=== PATIENT | male | born 1950 | race Two or more races ===

== ENCOUNTER 2017-08-24 07:01 | Inpatient (IN) | payer MEDICARE ==
[~2017-08-24] VITALS: Ht 170.2 cm; Wt 83.9 kg
--- NOTE | 2017-08-24 07:30 | NUR ---
GPS/RN PATIENT ADMITTED ON A 5150 HOLD FOR DTS UNDER THE CARE OF DR VIGIL AND CHERI HEBERT. PER HOLD PATIENT STATED THAT HE WAS HAVING SUICIDAL THOUGHTS AND WANTED TO RUN INTO TRAFFIC. BOTH ASHLEY AWARE OF NEW ADMISSION AND CHERI HEBERT AWARE OF NEED TO RECONCILE MEDICATION IN SYSTEM. PATIENT REFUSED TO SIGN ADMISSION PAPERWORK, COSIGNED BY 2 RN, BELONGINGS COLLECTED AND VALUABLES SENT TO [facility] IN [place] [address]. UPON FACE TO FACE ASSESSMENT, PATIENT IS ALERT X2- 3, STABLE CONDITION, DISHEVELED, DISORGANIZED, DISTRAUGHT ANXIOUS AND STATES THAT HE IS VERY DEPRESSED BUT DENIES SI AT THIS TIME. WILL CONTINUE TO MONITOR Q 15 MIN FOR SAFETY AND BEHAVIOR.
[2017-08-24] MEDS ORDERED: MAGNESIUM HYDROXIDE 30 ML UDC PO PRN (08:00)
[2017-08-24] MEDS ORDERED: ACETAMINOPHEN 325 MG TABLET PO PRN (08:00)
[2017-08-24] MEDS ORDERED: MAG HYDROX/AL HYDROX/SIMETH 30 ML UDC PO PRN (08:00)
[2017-08-24] MEDS ORDERED: OLAN15TA3 PO (08:18)
[2017-08-24] MEDS ORDERED: LISI10TA5 PO (08:18)
[2017-08-24] MEDS ORDERED: ATOR10TA PO (08:18)
[2017-08-24] MEDS ORDERED: TEMA15CA PO (08:18)
[2017-08-24] MEDS ORDERED: GABA-532 PO (08:18)
[2017-08-24] MEDS ORDERED: LAMO100T PO (08:18)
[2017-08-24] MEDS ORDERED: PROP10TA68 PO (08:18)
[2017-08-24] MEDS ORDERED: OLAN10TA3 PO (08:18)
[2017-08-24 08:47] VITALS: BP 135/84
[2017-08-24] MEDS: LORAZEPAM 0.5 MG TABLET PO PRN ×2 (09:57→16:51)
--- NOTE | 2017-08-24 13:39 | NUR ---
Initial Discharge Note: Pt will return to [facility] [address] [id number] . SW will help form a safe and proper discharge in collaboration with .
[2017-08-24] MEDS: VENLAFAXINE XR 75 MG CAP.SR.24H PO SCH (14:54)
[2017-08-24 16:00] VITALS: BP 130/79
[2017-08-24] MEDS: OLANZAPINE 10 MG TABLET PO SCH (16:51)
[2017-08-24] MEDS: PROPRANOLOL HCL 10 MG TABLET PO SCH (16:51)
--- NOTE | 2017-08-24 16:53 | NUR ---
GPS/RN PATIENT CONTINUES TO BE ANXIOUS, AGITATED WITH EPISODES OF CRYING,COMING TO NURSING STATION EVERY 10 MIN, ADMINISTERED ATIVAN 1MG PO, WILL CONTINUE TO MONITOR.
--- NOTE | 2017-08-24 17:54 | NUR ---
GPS/RN PATIENT IS ANXIOUS, AGITATED WITH EPISODES OF CRYING, ADMINISTERED ATIVAN 1MG PO, WILL CONTINUE TO MONITOR. Addendum: 08/24/17 at 6004 by JIGAR KEITA RN ADMINISTERED AT 0957
[2017-08-24 20:00] VITALS: BP_SYST 122; BP_SYST 132; BP_DIAS 80; BP_DIAS 86
[2017-08-24] MEDS: ZOLPIDEM TARTRATE 5 MG TABLET PO PRN (21:06)
[2017-08-24] MEDS: LamoTRIgine 100 MG TABLET PO SCH (21:06)
[2017-08-24] MEDS: ATORVASTATIN 10 MG TABLET PO SCH (21:06)
[2017-08-24] MEDS: GABAPENTIN 100 MG CAPSULE PO SCH (21:06)
[2017-08-25] MEDS: LORAZEPAM 0.5 MG TABLET PO PRN ×3 (06:32→20:22)
[2017-08-25 07:15] LABS: CHOLESTEROL 126 mg/dL (<200); HDL CHOLESTEROL 40 mg/dL (40-60); LDL 78 mg/dL (0-99); TRIGLYCERIDES 93 mg/dL (30-150)
[2017-08-25 07:20] LABS: ALBUMIN 3.5 g/dL (3.4-5.0); BILIRUBIN,TOTAL 0.8 mg/dL (0.2-1.0); CALCIUM, SERUM 9.2 mg/dL (8.5-10.1); CREATININE 1.3 mg/dL (0.6-1.3); TOTAL PROTEIN, SERUM 7.2 g/dL (6.4-8.2)
[2017-08-25 08:00] VITALS: BP 151/81
[2017-08-25] MEDS: GABAPENTIN 100 MG CAPSULE PO SCH ×3 (09:45→17:36)
[2017-08-25] MEDS: LISINOPRIL (10MG) 10 MG TABLET PO SCH (09:45)
[2017-08-25] MEDS: OLANZAPINE 10 MG TABLET PO SCH ×2 (09:45→17:36)
[2017-08-25] MEDS: VENLAFAXINE XR 75 MG CAP.SR.24H PO SCH (09:45)
[2017-08-25] MEDS: PROPRANOLOL HCL 10 MG TABLET PO SCH ×3 (09:45→17:00)
[2017-08-25] MEDS: LamoTRIgine 100 MG TABLET PO SCH ×2 (09:45→20:21)
--- NOTE | 2017-08-25 14:04 | NUR ---
RN NOTES ADMINISTERED ATIVAN 1 MG PO PRN FOR ANXIETY, PER PATIENT REQUEST. V/S TAKEN BP- 108/62, P-80, CONTINUED MONITORING.
[2017-08-25 16:00] VITALS: BP 103/62
[2017-08-25 20:00] VITALS: BP 105/69
[2017-08-25] MEDS: ATORVASTATIN 10 MG TABLET PO SCH (21:43)
[2017-08-25] MEDS: ZOLPIDEM TARTRATE 5 MG TABLET PO PRN (21:44)
[2017-08-26 08:24] VITALS: BP 119/70
[2017-08-26] MEDS: GABAPENTIN 100 MG CAPSULE PO SCH ×3 (08:48→16:50)
[2017-08-26] MEDS: OLANZAPINE 10 MG TABLET PO SCH ×2 (08:48→16:50)
[2017-08-26] MEDS: VENLAFAXINE XR 75 MG CAP.SR.24H PO SCH (08:48)
[2017-08-26] MEDS: LamoTRIgine 100 MG TABLET PO SCH ×2 (08:49→22:14)
[2017-08-26] MEDS: LISINOPRIL (10MG) 10 MG TABLET PO SCH (08:49)
[2017-08-26] MEDS: PROPRANOLOL HCL 10 MG TABLET PO SCH ×3 (08:50→16:43)
[2017-08-26] MEDS: LORAZEPAM 0.5 MG TABLET PO PRN ×2 (10:16→18:42)
[2017-08-26 16:00] VITALS: BP 108/57
--- NOTE | 2017-08-26 18:47 | NUR ---
GPS/RN-NOTES PATIENT REQUESTING FOR ATIVAN. STATED" I NEED ATIVAN FOR MY ANXIETY'. ATIVAN 1MG P.O GIVEN PRN ORDER.WILL ENDORSE TO THE INCOMING NURSE FOR CONTINUITY OF CARE .
[2017-08-26 20:00] VITALS: BP 130/76
[2017-08-26] MEDS: ATORVASTATIN 10 MG TABLET PO SCH (22:13)
[2017-08-26] MEDS: ZOLPIDEM TARTRATE 5 MG TABLET PO PRN (22:14)
[2017-08-27] MEDS: LORAZEPAM 0.5 MG TABLET PO PRN ×3 (07:52→23:23)
[2017-08-27 08:00] VITALS: BP 118/77
[2017-08-27] MEDS: LISINOPRIL (10MG) 10 MG TABLET PO SCH (08:15)
[2017-08-27] MEDS: PROPRANOLOL HCL 10 MG TABLET PO SCH ×3 (08:15→16:00)
[2017-08-27] MEDS: OLANZAPINE 10 MG TABLET PO SCH ×2 (08:16→16:00)
[2017-08-27] MEDS: VENLAFAXINE XR 75 MG CAP.SR.24H PO SCH (08:16)
[2017-08-27] MEDS: LamoTRIgine 100 MG TABLET PO SCH ×2 (08:16→21:28)
[2017-08-27] MEDS: GABAPENTIN 100 MG CAPSULE PO SCH ×3 (08:16→16:00)
--- NOTE | 2017-08-27 10:02 | NUR ---
GPS RN NOTE; RECEIVED PATIENT IN THE HALLWAY ANXIOUS REQUESTING MEDICATIONS ATIVAN 1 MG PO PRN GIVEN PATIENT AMBULATORY AND SELF CARE, V/S STABLE. WILL CONTINUE Q 15 MIN CHECKS FOR SAFETY AND BEHAVIOR.
--- NOTE | 2017-08-27 15:55 | NUR ---
GPS RN NOTE: PATIENT REQUESTING ATIVAN FOR ANXIETY , ATIVAN 1 MG PO PRN GIVEN PER ORDERS WILL CONTINUE MONITORING FOR SAFETY AND BEHAVIOR Q 15 MIN .
[2017-08-27 16:00] VITALS: BP 105/58
[2017-08-27 20:43] VITALS: BP 105/63
[2017-08-27] MEDS: ATORVASTATIN 10 MG TABLET PO SCH (21:28)
[2017-08-27] MEDS: ZOLPIDEM TARTRATE 5 MG TABLET PO PRN (21:29)
[2017-08-28] MEDS: LORAZEPAM 0.5 MG TABLET PO PRN ×2 (08:01→16:11)
[2017-08-28] MEDS: GABAPENTIN 100 MG CAPSULE PO SCH ×4 (08:01→21:06)
[2017-08-28] MEDS: LISINOPRIL (10MG) 10 MG TABLET PO SCH (08:01)
[2017-08-28] MEDS: VENLAFAXINE XR 75 MG CAP.SR.24H PO SCH (08:01)
[2017-08-28] MEDS: LamoTRIgine 100 MG TABLET PO SCH ×2 (08:01→21:05)
[2017-08-28] MEDS: PROPRANOLOL HCL 10 MG TABLET PO SCH ×3 (08:02→16:12)
[2017-08-28] MEDS: OLANZAPINE 10 MG TABLET PO SCH ×2 (08:03→16:08)
[2017-08-28 08:10] VITALS: BP 137/81
--- NOTE | 2017-08-28 16:11 | NUR ---
GPS RN NOTE: PATIENT REQUESTING ATIVAN FOR ANXIETY , ATIVAN 1 MG PO PRN GIVEN PER ORDERS WILL CONTINUE MONITORING FOR SAFETY AND BEHAVIOR Q 15 MIN.
[2017-08-28 16:12] VITALS: BP_SYST 100; BP_SYST 122; BP_DIAS 68; BP_DIAS 78
[2017-08-28] MEDS ORDERED: DEXTROSE 50%-WATER 50 ML DISP.SYRIN IV PRN (18:30)
[2017-08-28 20:20] VITALS: BP 123/54
[2017-08-28] MEDS: ATORVASTATIN 10 MG TABLET PO SCH (21:05)
[2017-08-28] MEDS: BLOOD SUGAR DIAGNOSTIC 1 EACH STRIP IN SCH (21:42)
[2017-08-28] MEDS: INSULIN REGULAR, HUMAN 100 UNIT/ML 3 ML VIAL SQ PRN (21:43)
[2017-08-28] MEDS: ZOLPIDEM TARTRATE 5 MG TABLET PO PRN (22:02)
[2017-08-29] MEDS: LORAZEPAM 0.5 MG TABLET PO PRN ×3 (06:29→19:58)
[2017-08-29] MEDS: BLOOD SUGAR DIAGNOSTIC 1 EACH STRIP IN SCH ×4 (07:30→21:36)
--- NOTE | 2017-08-29 07:30 | NUR ---
GPS/RN PATIENT REFUSING BS CHECK X 3, EXPLAINED RISKS AND BENEFITS, PATIENT STATED, " I AM NOT DIABETIC AND HAVE NEVER TAKEN MY BLOOD SUGAR" WILL CONTINUE TO ENCOURAGE TO COMPLY WITH MD REGIMEN.
[2017-08-29 08:00] VITALS: BP 147/80
[2017-08-29] MEDS: OLANZAPINE 10 MG TABLET PO SCH (08:35)
[2017-08-29] MEDS: LISINOPRIL (10MG) 10 MG TABLET PO SCH (08:36)
[2017-08-29] MEDS: PROPRANOLOL HCL 10 MG TABLET PO SCH ×3 (08:36→17:48)
[2017-08-29] MEDS: LamoTRIgine 100 MG TABLET PO SCH ×2 (08:36→21:30)
[2017-08-29] MEDS: VENLAFAXINE XR 75 MG CAP.SR.24H PO SCH (08:36)
[2017-08-29] MEDS: GABAPENTIN 100 MG CAPSULE PO SCH ×4 (08:36→21:29)
--- NOTE | 2017-08-29 10:00 | NUR ---
GPS/RN D/C 1:[address] VIGIL, PATIENT WILLING TO CONTRACT FOR SAFETY. CONTRACT IS SIGNED BY PATIENT.
--- NOTE | 2017-08-29 11:22 | NUR ---
GPS/RN PATIENT REFUSING BS CHECK X 3, EXPLAINED RISKS AND BENEFITS, WILL CONTINUE TO ENCOURAGE TO COMPLY WITH MD REGIMEN.
[2017-08-29 16:00] VITALS: BP 95/61
[2017-08-29] MEDS: OLANZAPINE 5 MG TABLET PO SCH (17:02)
[2017-08-29 20:10] VITALS: BP 128/73
[2017-08-29] MEDS: ATORVASTATIN 10 MG TABLET PO SCH (21:29)
[2017-08-29] MEDS: INSULIN REGULAR, HUMAN 100 UNIT/ML 3 ML VIAL SQ PRN (21:40)
[2017-08-29] MEDS: ZOLPIDEM TARTRATE 5 MG TABLET PO PRN (22:11)
[2017-08-30 08:00] VITALS: BP 138/82
[2017-08-30] MEDS: BLOOD SUGAR DIAGNOSTIC 1 EACH STRIP IN SCH ×4 (08:08→21:24)
[2017-08-30] MEDS: OLANZAPINE 5 MG TABLET PO SCH ×2 (08:08→17:04)
[2017-08-30] MEDS: LORAZEPAM 0.5 MG TABLET PO PRN ×3 (08:08→20:46)
[2017-08-30] MEDS: LamoTRIgine 100 MG TABLET PO SCH ×2 (08:09→21:12)
[2017-08-30] MEDS: GABAPENTIN 100 MG CAPSULE PO SCH ×4 (08:09→21:12)
[2017-08-30] MEDS: LISINOPRIL (10MG) 10 MG TABLET PO SCH (08:10)
[2017-08-30] MEDS: VENLAFAXINE XR 75 MG CAP.SR.24H PO SCH (08:10)
[2017-08-30] MEDS: PROPRANOLOL HCL 10 MG TABLET PO SCH ×3 (08:10→17:04)
[2017-08-30] MEDS: INSULIN REGULAR, HUMAN 100 UNIT/ML 3 ML VIAL SQ PRN ×4 (08:12→21:26)
[2017-08-30 16:00] VITALS: BP 113/71
[2017-08-30 20:31] VITALS: BP 90/57
[2017-08-30] MEDS: ATORVASTATIN 10 MG TABLET PO SCH (21:12)
[2017-08-30 23:00] VITALS: BP 106/65
[2017-08-31] MEDS: LORAZEPAM 0.5 MG TABLET PO PRN ×3 (06:05→21:00)
[2017-08-31] MEDS: BLOOD SUGAR DIAGNOSTIC 1 EACH STRIP IN SCH ×4 (07:39→21:10)
[2017-08-31] MEDS: LamoTRIgine 100 MG TABLET PO SCH ×2 (08:06→20:33)
[2017-08-31] MEDS: VENLAFAXINE XR 75 MG CAP.SR.24H PO SCH (08:06)
[2017-08-31] MEDS: PROPRANOLOL HCL 10 MG TABLET PO SCH ×3 (08:06→17:05)
[2017-08-31] MEDS: GABAPENTIN 100 MG CAPSULE PO SCH ×4 (08:06→20:33)
[2017-08-31] MEDS: LISINOPRIL (10MG) 10 MG TABLET PO SCH (08:07)
[2017-08-31] MEDS: OLANZAPINE 5 MG TABLET PO SCH ×2 (08:07→17:04)
[2017-08-31 08:28] VITALS: BP 114/73
[2017-08-31] MEDS: INSULIN REGULAR, HUMAN 100 UNIT/ML 3 ML VIAL SQ PRN ×3 (09:39→21:17)
--- NOTE | 2017-08-31 14:59 | NUR ---
Janene Boone [facility] outpatient piano case maker for Dr. Jake Garcia (pts [facility] Customer Service) [phone] called NUNO to discuss pts status. Janene informed NUNO that she has been follwing pts case and wanted to provide Dr. Garcia with information regarding pts mental health. NUNO provided Janene with Dr. Oswald's office number so Dr. Garcia could contact to evaluate pts discharge needs.
[2017-08-31 16:06] VITALS: BP 107/63
[2017-08-31 20:00] VITALS: BP 101/58
--- NOTE | 2017-08-31 21:00 | NUR ---
LORAZEPAM 1 MG TAB PO GIVEN, C/O ANXIETY.
[2017-08-31] MEDS: ATORVASTATIN 10 MG TABLET PO SCH (21:01)
--- NOTE | 2017-08-31 21:10 | NUR ---
MAALOX 30 ML PO GIVEN, C/O GASTRIC UPSET
--- NOTE | 2017-08-31 21:15 | NUR ---
ACCUCHECK 137 MG/DL, 2 UNITS REG/NSULIN SC ADMINISTERED. HS SNACKS GIVEN.
[2017-09-01] MEDS: ZOLPIDEM TARTRATE 5 MG TABLET PO PRN ×2 (00:32→22:18)
--- NOTE | 2017-09-01 00:36 | NUR ---
Patient unable to sleep, requested for his sleeping pill, ambien 5 mg tab 1 po given.
[2017-09-01] MEDS: BLOOD SUGAR DIAGNOSTIC 1 EACH STRIP IN SCH ×4 (07:40→21:02)
[2017-09-01] MEDS: INSULIN REGULAR, HUMAN 100 UNIT/ML 3 ML VIAL SQ PRN ×3 (08:12→21:05)
[2017-09-01] MEDS: OLANZAPINE 5 MG TABLET PO SCH ×2 (08:14→17:19)
[2017-09-01] MEDS: GABAPENTIN 100 MG CAPSULE PO SCH ×4 (08:14→20:15)
[2017-09-01] MEDS: LamoTRIgine 100 MG TABLET PO SCH ×2 (08:14→20:15)
[2017-09-01] MEDS: VENLAFAXINE XR 75 MG CAP.SR.24H PO SCH (08:14)
[2017-09-01] MEDS: PROPRANOLOL HCL 10 MG TABLET PO SCH ×3 (08:15→17:00)
[2017-09-01] MEDS: LISINOPRIL (10MG) 10 MG TABLET PO SCH (08:15)
[2017-09-01 08:24] VITALS: BP 131/85
[2017-09-01] MEDS: LORAZEPAM 0.5 MG TABLET PO PRN ×3 (08:41→21:36)
[2017-09-01 16:00] VITALS: BP 100/59
[2017-09-01 20:00] VITALS: BP 104/65
--- NOTE | 2017-09-01 21:05 | NUR ---
ACCUCHECK NOW 145 MG/DL, 2 UNITS REG. INSULIN SC ADMINISTERED. HAD HS SNACKS, SANDWICH/JUICE 125 ML.
[2017-09-01] MEDS: ATORVASTATIN 10 MG TABLET PO SCH (21:09)
--- NOTE | 2017-09-01 21:37 | NUR ---
C/O ANXIETY FEELING, ATIVAN 1 MG TAB PO GIVEN.
--- NOTE | 2017-09-01 22:18 | NUR ---
UNABLE TO SLEEP, AMBIEN 5 MG TAB 1 PO GIVEN.
[2017-09-02] MEDS: LORAZEPAM 0.5 MG TABLET PO PRN ×3 (06:27→19:39)
--- NOTE | 2017-09-02 06:28 | NUR ---
ATIVAN 1 MG TAB PO GIVEN FOR HIS ANXIETY PER HIS REQUEST
[2017-09-02] MEDS: BLOOD SUGAR DIAGNOSTIC 1 EACH STRIP IN SCH ×4 (07:40→21:14)
[2017-09-02 08:21] VITALS: BP 104/66
[2017-09-02] MEDS: INSULIN REGULAR, HUMAN 100 UNIT/ML 3 ML VIAL SQ PRN ×2 (08:33→12:22)
[2017-09-02] MEDS: VENLAFAXINE XR 75 MG CAP.SR.24H PO SCH (08:38)
[2017-09-02] MEDS: PROPRANOLOL HCL 10 MG TABLET PO SCH ×3 (08:38→18:17)
[2017-09-02] MEDS: LamoTRIgine 100 MG TABLET PO SCH ×2 (08:39→21:23)
[2017-09-02] MEDS: GABAPENTIN 100 MG CAPSULE PO SCH ×4 (08:39→21:25)
[2017-09-02] MEDS: OLANZAPINE 5 MG TABLET PO SCH ×2 (08:39→18:18)
[2017-09-02] MEDS: LISINOPRIL (10MG) 10 MG TABLET PO SCH (08:40)
--- NOTE | 2017-09-02 12:30 | NUR ---
PT. STATES HE'S NERVOUS AND WANTS ATIVAN-MED. WITH 1 MG PO.
--- NOTE | 2017-09-02 13:05 | NUR ---
COMING OUT TO DESK STATES HE ALREADY CALMED HIMSELF DOWN AND SHOULD NOT HAVE TAKEN ATIVAN. PT. REASSURED.
--- NOTE | 2017-09-02 13:30 | NUR ---
SLEPT SOUNDLY FOR FEW HRS AFTER ATIVAN.
--- NOTE | 2017-09-02 14:30 | NUR ---
AFTERNOON CARLA HELD PT. VERY GROGGY.
[2017-09-02 16:00] VITALS: BP 132/64
--- NOTE | 2017-09-02 18:42 | NUR ---
AWAKE NOW AND IN DINING RM.ALERT.MIGUEL. MEDS GIVEN.
[2017-09-02 20:00] VITALS: BP 124/72
--- NOTE | 2017-09-02 21:14 | NUR ---
ACCUCHECK 129 MG/DL, NO INSULIN DUE AT THIS TIME.
[2017-09-02] MEDS: ATORVASTATIN 10 MG TABLET PO SCH (21:25)
[2017-09-02] MEDS: ZOLPIDEM TARTRATE 5 MG TABLET PO PRN (21:57)
--- NOTE | 2017-09-02 21:58 | NUR ---
Ambien 5 mg tab 1 po given for insomnia per patient's request.
[2017-09-03] MEDS: LORAZEPAM 0.5 MG TABLET PO PRN ×2 (07:22→14:54)
[2017-09-03] MEDS: BLOOD SUGAR DIAGNOSTIC 1 EACH STRIP IN SCH ×4 (07:27→21:12)
[2017-09-03 08:00] VITALS: BP 122/74
[2017-09-03] MEDS: LamoTRIgine 100 MG TABLET PO SCH ×2 (09:26→20:52)
[2017-09-03] MEDS: VENLAFAXINE XR 75 MG CAP.SR.24H PO SCH (09:26)
[2017-09-03] MEDS: GABAPENTIN 100 MG CAPSULE PO SCH ×4 (09:26→20:52)
[2017-09-03] MEDS: PROPRANOLOL HCL 10 MG TABLET PO SCH ×3 (09:26→16:49)
[2017-09-03] MEDS: OLANZAPINE 5 MG TABLET PO SCH ×2 (09:27→16:49)
[2017-09-03] MEDS: LISINOPRIL (10MG) 10 MG TABLET PO SCH (09:27)
[2017-09-03] MEDS: INSULIN REGULAR, HUMAN 100 UNIT/ML 3 ML VIAL SQ PRN ×2 (12:15→21:18)
[2017-09-03 16:00] VITALS: BP 109/70
[2017-09-03 20:03] VITALS: BP 123/72
[2017-09-03] MEDS: ATORVASTATIN 10 MG TABLET PO SCH (21:12)
[2017-09-03] MEDS: ZOLPIDEM TARTRATE 5 MG TABLET PO PRN (21:37)
[2017-09-04] MEDS: LORAZEPAM 0.5 MG TABLET PO PRN (06:15)
--- NOTE | 2017-09-04 06:15 | NUR ---
GPS RN NOTES: PATIENT C/O FEELING ANXIOUS AND REQUESTING FOR ATIVAN, VSS. ADMINISTERED ATIVAN 1MG PO ORDERED. WILL CONTINUE TO MONITOR Q15MIN FOR SAFETY AND BEHAVIOR.
[2017-09-04 08:00] VITALS: BP 105/55
[2017-09-04] MEDS: VENLAFAXINE XR 75 MG CAP.SR.24H PO SCH (08:25)
[2017-09-04] MEDS: GABAPENTIN 100 MG CAPSULE PO SCH ×2 (08:25→13:00)
[2017-09-04] MEDS: LISINOPRIL (10MG) 10 MG TABLET PO SCH (08:26)
[2017-09-04] MEDS: OLANZAPINE 5 MG TABLET PO SCH (08:26)
[2017-09-04] MEDS: LamoTRIgine 100 MG TABLET PO SCH (08:27)
[2017-09-04] MEDS: PROPRANOLOL HCL 10 MG TABLET PO SCH ×2 (08:27→13:00)
[2017-09-04] MEDS: BLOOD SUGAR DIAGNOSTIC 1 EACH STRIP IN SCH ×2 (08:51→12:29)
[2017-09-04] MEDS: INSULIN REGULAR, HUMAN 100 UNIT/ML 3 ML VIAL SQ PRN ×2 (08:55→12:31)
--- NOTE | 2017-09-04 08:55 | NUR ---
[id number]: BLOOD SUGAR IS 191 MG/DL AND GAVE 3 UNITS OF REGULAR INSULIN.
--- NOTE | 2017-09-04 12:31 | NUR ---
[id number]: BLOOD SUGAR IS 134 MG/DL AND GAVE 2 UNITS OF REGULAR INSULIN
--- NOTE | 2017-09-04 15:17 | NUR ---
Discharge Note: Pt is being discharged back to [facility] (Assisted Living) [address], [place] [id number] . Pt will be transported via [facility] at 3:00pm. Pt did not identify an emergency contact or next of kin. Pts mood and affect was flat, calm and cooperative and was agreeable to being discharged back [facility]. Pt denies suicidal/homicidal ideations and denies visual/auditory hallucinations. Patient was provided referrals to address his alcohol use. Patient was referred to [facility]: [address] [place] [address] and will report for an Intake on Tuesday September 05, 2017 before 5:00pm. Additional resources included [facility] [address] [place] [address] and [facility] [address] [place] [address] . SW notified Group Rooms Coordinator: Dr. Jake Garcia [address] [facility] [address] [place] [address] outpatient case management department of pts discharge and Janene Boone stated she would notify Dr. Garcia about discharge. Pt will schedule an appointment with Psychiatrist: Dr Barak Chowdhury [address] [place] [address] The multidisciplinary exitcare form was done, printed, signed, and given to the patient.
--- NOTE | 2017-09-04 15:30 | NUR ---
[id number]: PT IS 66 YEARS OLD MALE DISCHARGE TO [facility] [place] [address] [place]. [address] IN STABLE CONDITION. COMPLIANT WITH MEDICATIONS, COOPERATIVE WITH TREATMENT PLANS. PT DENIES SI/HI. BEHAVIOR IMPROVED, PSYCHIATRIC TX PLANS MET, MEDICAL TX PLANS DEFERRED FOR CONTINUAL MONITORING. EDUCATED PT ABOUT AFTER CARE PLAN AND COPY PROVIDED. RETURNED PERSONAL BELONGINGS TO PT. MEDICATIONS RECONCILED WITH DR. DU AND SKIVER UPPERS OR LININGS DIVINA BLANCO. PT SIGNED DISCHARGE PAPERWORK. PT REFUSED SKIN ASSESSMENT PT LEFT THE UNIT ACCOMPANIED BY STAFF VIA PRIVATE CAR.
[2017-09-04 16:00] VITALS: BP 147/89
--- NOTE | 2017-10-11 11:13 | NUR ---
15 DAY SUBSTANCE ABUSE FOLLOW-UP: SW unable to follow up due to pt not having a phone.
== END 2017-09-04 15:30 | disposition home or self-care (01) | DRG 885 ==
LOC: GPS 07:18
PROVIDERS: ADMIT Psychiatry & Neurology Psychiatry; ATTEND Psychiatry & Neurology Psychiatry
DX: F31.5 Bipolar disorder, current episode depressed, severe, with psychotic features (principal); G62.9 Polyneuropathy, unspecified; E78.5 Hyperlipidemia, unspecified; F60.7 Dependent personality disorder; I10 Essential (primary) hypertension; G25.0 Essential tremor; Z79.899 Other long term (current) drug therapy; Z87.891 Personal history of nicotine dependence; Z81.8 Family history of other mental and behavioral disorders; F29 Unspecified psychosis not due to a substance or known physiological condition; G47.00 Insomnia, unspecified
CPT/HCPCS: 36415; 80053-TC; 80061-TC; 82962-TC; 87081-TC; J1815